=== PATIENT | male | born 1950 | race Caucasian/White ===

== ENCOUNTER 2018-01-22 15:48 | Inpatient (IN) | payer OTHER, MEDICAID ==
[2018-01-22 16:11] LABS: ADD MAN DIFF? NO
[2018-01-22 16:15] LABS: BASO # 0.1 x10^3/uL (0.0-0.2); BASO % 1 % (0-3); EOS # 0.1 x10^3/uL (0.0-0.7); EOS % 1 % (0-3); HEMATOCRIT 35.3 % (39.0-53.0); LYMPH # 0.8 x10^3/uL (1.0-4.8); LYMPH % 8 % (24-48); MEAN CORPUSCULAR HEMOGLOBIN 31 pg (25-35); MEAN CORPUSCULAR HGB CONC 34 g/dL (31-37); MEAN CORPUSCULAR VOLUME 92 fL (79-100); MONO # 0.9 x10^3/uL (0.0-1.1); MONO % 8 % (0-9); NEUT # 9.1 x10^3uL (1.8-7.7); NEUT % 83 % (31-73); PLATELET COUNT 527 x10^3/uL (140-400); RED BLOOD COUNT 3.85 x10^6/uL (4.30-5.70)
[2018-01-22] MEDS: IV NORMAL SALINE 1000ML BAG 1,000 ML IV ×2 (16:15→18:55)
[2018-01-22 16:26] LABS: ANION GAP 5 (6-14); BLOOD UREA NITROGEN 14 mg/dL (8-26); BUN/CREATININE RATIO 13 (6-20); CALCIUM 8.2 mg/dL (8.5-10.1); CARBON DIOXIDE 29 mmol/L (21-32); CHLORIDE 102 mmol/L (98-107); CREATININE 1.1 mg/dL (0.7-1.3); GFR 66.8; GLUCOSE 113 mg/dL (70-99); POTASSIUM 3.7 mmol/L (3.5-5.1); SODIUM 136 mmol/L (136-145)
[2018-01-22] MEDS: CLINDAMYCIN 900MG PREMIX 50 ML IV (16:30)
[2018-01-22] MEDS ORDERED: VANCOMYCIN 1.75 GM in IV NORMAL SALINE 500ML BAG 500 ML IV (16:30)
[2018-01-22] MEDS: PIPERACILLIN/TAZOBACTAM 4.5 GM in IV NORMAL SALINE 100ML 100 ML IV (16:30)
[2018-01-22 16:32] LABS: ALBUMIN 2.2 g/dL (3.4-5.0); ALBUMIN/GLOBULIN RATIO 0.5 (1.0-1.7); ALK PHOS 86 U/L (46-116); ALT (SGPT) 29 U/L (16-63); AST (SGOT) 34 U/L (15-37); TOTAL BILIRUBIN 0.5 mg/dL (0.2-1.0); TOTAL PROTEIN 6.8 g/dL (6.4-8.2)
[2018-01-22 16:35] LABS: LACTIC ACID 1.7 mmol/L (0.4-2.0)
[2018-01-22] MEDS ORDERED: IV NORMAL SALINE 1000ML BAG 1,000 ML IV (16:41)
[2018-01-22] MEDS ORDERED: ONDANSETRON PF 4 MG/2 ML VIAL. IV ×2 (16:45→17:15)
[2018-01-22] MEDS ORDERED: MORPHINE SULFATE 4 MG/ML DISP.SYRIN. IV (16:45)
[2018-01-22] MEDS ORDERED: CONTRAST GIVEN MC (17:00)
[2018-01-22] MEDS ORDERED: IPRATRPIUM/ALBUTEROL 0.5/2.5MG 3 ML NEBU. NEB (17:00)
[2018-01-22] MEDS ORDERED: ACETAMINOPHEN 500 MG TABLET PO (17:15)
[2018-01-22] MEDS ORDERED: diphenhydrAMINE HCL 25 MG CAPSULE PO (17:15)
[2018-01-22 17:18] LABS: INR 1.1 (0.8-1.1); PROTHROMBIN TIME PATIENT 13.8 SEC (11.7-14.0)
[2018-01-22] MEDS: IOHEXOL 300 MG/ML 100ML VIAL. IV (17:29)
[2018-01-22] MEDS ORDERED: ALBUTEROL SULFATE 2.5 MG/3 ML NEBU. NEB (17:30)
[2018-01-22 18:06] LABS: SEDIMENTATION RATE 70 (0-15)
[2018-01-22] MEDS: VANCOMYCIN 2 GM in IV 1/2 NORMAL SALINE 500 ML IV (18:55)
[2018-01-22] MEDS: BUDESONIDE 0.5 MG/2 ML NEBU. NEB (19:27)
[2018-01-22] MEDS: ALBUTEROL SULFATE 2.5 MG/3 ML NEBU. NEB (19:27)
[2018-01-22] MEDS: IPRATROPIUM BROMIDE 0.5 MG/2.5 ML NEBU. NEB (19:29)
[2018-01-22] MEDS: OLANZapine 5 MG TABLET PO (21:14)
[2018-01-23] MEDS: IV NORMAL SALINE 1000ML BAG 1,000 ML IV ×3 (03:15→20:54)
[2018-01-23] MEDS: LEVOTHYROXINE 100 MCG TABLET PO (06:03)
[2018-01-23 06:07] LABS: ADD MAN DIFF? NO
[2018-01-23] MEDS: BUDESONIDE 0.5 MG/2 ML NEBU. NEB ×2 (07:05→20:29)
[2018-01-23] MEDS: IPRATROPIUM BROMIDE 0.5 MG/2.5 ML NEBU. NEB ×3 (07:10→20:30)
[2018-01-23] MEDS: ALBUTEROL SULFATE 2.5 MG/3 ML NEBU. NEB ×3 (07:11→20:29)
[2018-01-23 08:06] LABS: BASO # 0.1 x10^3/uL (0.0-0.2); BASO % 1 % (0-3); EOS # 0.1 x10^3/uL (0.0-0.7); EOS % 2 % (0-3); HEMATOCRIT 30.1 % (39.0-53.0); HEMOGLOBIN 10.3 g/dL (13.0-17.5); LYMPH # 0.8 x10^3/uL (1.0-4.8); LYMPH % 9 % (24-48); MEAN CORPUSCULAR HEMOGLOBIN 32 pg (25-35); MEAN CORPUSCULAR HGB CONC 34 g/dL (31-37); MEAN CORPUSCULAR VOLUME 92 fL (79-100); MONO # 0.8 x10^3/uL (0.0-1.1); MONO % 10 % (0-9); NEUT # 6.9 x10^3uL (1.8-7.7); NEUT % 79 % (31-73); PLATELET COUNT 462 x10^3/uL (140-400); RED BLOOD COUNT 3.27 x10^6/uL (4.30-5.70); WHITE BLOOD COUNT 8.7 x10^3/uL (4.0-11.0)
[2018-01-23] MEDS ORDERED: LIDOCAINE 1% PF 30 ML VIAL. (08:23)
[2018-01-23] MEDS: LACTOBACILLUS RHAMNOSUS GG 1 CAPSULE. PO ×2 (11:46→20:51)
[2018-01-23] MEDS: PIPERACILLIN/TAZOBACTAM 3.375 GM in IV NORMAL SALINE 50ML 50 ML IV ×3 (11:46→23:29)
[2018-01-23] MEDS: VANCOMYCIN PER PHARMACY MC (12:07)
[2018-01-23] MEDS: VANCOMYCIN 1.25 GM in IV DEXTROSE 5 %-0.2 % NACL 250 ML IV (12:24)
[2018-01-23] MEDS: OLANZapine 5 MG TABLET PO (20:51)
[2018-01-23 21:48] LABS: BACTERIA,URINE 0 /HPF (0-FEW); BILIRUBIN,URINE NEGATIVE (NEG); CLARITY,URINE CLEAR; COLOR,URINE YELLOW; GLUCOSE,URINE NEGATIVE (NEG); NITRITE,URINE NEGATIVE (NEG); PH,URINE 6.5; PROTEIN,URINE NEGATIVE (NEG-TRACE); RBC,URINE RARE /HPF (0-2); SQUAMOUS EPITHELIAL CELL,UR FEW /LPF; WBC,URINE 0 /HPF (0-4)
[2018-01-24] MEDS: VANCOMYCIN 1.25 GM in IV DEXTROSE 5 %-0.2 % NACL 250 ML IV ×3 (00:11→23:15)
[2018-01-24] MEDS: LEVOTHYROXINE 100 MCG TABLET PO (05:58)
[2018-01-24] MEDS: PIPERACILLIN/TAZOBACTAM 3.375 GM in IV NORMAL SALINE 50ML 50 ML IV ×3 (06:01→18:15)
[2018-01-24] MEDS: LACTOBACILLUS RHAMNOSUS GG 1 CAPSULE. PO ×2 (09:06→21:49)
[2018-01-24 11:34] LABS: VANC TR 16.2 mcg/mL (10.0-20.0)
[2018-01-24] MEDS: VANCOMYCIN PER PHARMACY MC (12:59)
[2018-01-24] MEDS: IPRATRPIUM/ALBUTEROL 0.5/2.5MG 3 ML NEBU. NEB ×2 (15:23→21:00)
[2018-01-24] MEDS: IV NORMAL SALINE 1000ML BAG 1,000 ML IV (16:49)
[2018-01-24] MEDS: BUDESONIDE 0.5 MG/2 ML NEBU. NEB (20:00)
[2018-01-24] MEDS: OLANZapine 5 MG TABLET PO (21:49)
[2018-01-24 23:13] LABS: MRSA BY PCR Negative (Negative)
[2018-01-25] MEDS: PIPERACILLIN/TAZOBACTAM 3.375 GM in IV NORMAL SALINE 50ML 50 ML IV ×4 (02:34→17:58)
[2018-01-25] MEDS: IV NORMAL SALINE 1000ML BAG 1,000 ML IV ×4 (02:35→21:32)
[2018-01-25] MEDS: IPRATRPIUM/ALBUTEROL 0.5/2.5MG 3 ML NEBU. NEB ×3 (07:23→19:16)
[2018-01-25] MEDS: BUDESONIDE 0.5 MG/2 ML NEBU. NEB ×3 (07:23→19:16)
[2018-01-25] MEDS: LEVOTHYROXINE 100 MCG TABLET PO (09:17)
[2018-01-25] MEDS: LACTOBACILLUS RHAMNOSUS GG 1 CAPSULE. PO ×2 (09:17→21:31)
[2018-01-25] MEDS: VANCOMYCIN 1.25 GM in IV DEXTROSE 5 %-0.2 % NACL 250 ML IV ×2 (14:01→23:19)
[2018-01-25 14:16] LABS: SEDIMENTATION RATE 85 (0-15)
[2018-01-25] MEDS: HYDROcodone/APAP 5/325MG 1 TAB TABLET PO (16:11)
[2018-01-25] MEDS: OLANZapine 5 MG TABLET PO (21:31)
[2018-01-26] MEDS: PIPERACILLIN/TAZOBACTAM 3.375 GM in IV NORMAL SALINE 50ML 50 ML IV ×2 (01:57→06:07)
[2018-01-26 04:11] LABS: ADD MAN DIFF? NO
[2018-01-26 04:24] LABS: BASO # 0.1 x10^3/uL (0.0-0.2); BASO % 2 % (0-3); EOS # 0.2 x10^3/uL (0.0-0.7); EOS % 3 % (0-3); HEMATOCRIT 27.9 % (39.0-53.0); HEMOGLOBIN 9.7 g/dL (13.0-17.5); LYMPH # 0.9 x10^3/uL (1.0-4.8); LYMPH % 14 % (24-48); MEAN CORPUSCULAR HEMOGLOBIN 32 pg (25-35); MEAN CORPUSCULAR HGB CONC 35 g/dL (31-37); MEAN CORPUSCULAR VOLUME 91 fL (79-100); MONO # 0.7 x10^3/uL (0.0-1.1); MONO % 11 % (0-9); NEUT # 4.3 x10^3uL (1.8-7.7); NEUT % 71 % (31-73); PLATELET COUNT 335 x10^3/uL (140-400); RED BLOOD COUNT 3.07 x10^6/uL (4.30-5.70); RED CELL DISTRIBUTION WIDTH 13.8 % (11.5-14.5); WHITE BLOOD COUNT 6.1 x10^3/uL (4.0-11.0)
[2018-01-26 04:44] LABS: ALBUMIN 1.9 g/dL (3.4-5.0); ALBUMIN/GLOBULIN RATIO 0.5 (1.0-1.7); ALK PHOS 69 U/L (46-116); ALT (SGPT) 25 U/L (16-63); ANION GAP 8 (6-14); AST (SGOT) 22 U/L (15-37); BLOOD UREA NITROGEN 9 mg/dL (8-26); BUN/CREATININE RATIO 9 (6-20); CALCIUM 7.9 mg/dL (8.5-10.1); CARBON DIOXIDE 27 mmol/L (21-32); CHLORIDE 105 mmol/L (98-107); GFR 74.5; GLUCOSE 89 mg/dL (70-99); POTASSIUM 3.3 mmol/L (3.5-5.1); SODIUM 140 mmol/L (136-145); TOTAL BILIRUBIN 0.4 mg/dL (0.2-1.0)
[2018-01-26] MEDS: IPRATRPIUM/ALBUTEROL 0.5/2.5MG 3 ML NEBU. NEB ×2 (07:38→13:38)
[2018-01-26] MEDS: BUDESONIDE 0.5 MG/2 ML NEBU. NEB (07:38)
[2018-01-26] MEDS: LACTOBACILLUS RHAMNOSUS GG 1 CAPSULE. PO (08:08)
[2018-01-26] MEDS: LEVOTHYROXINE 100 MCG TABLET PO (08:08)
[2018-01-26] MEDS: IV NORMAL SALINE 1000ML BAG 1,000 ML IV (11:22)
[2018-01-26] MEDS: AMOXICILLIN/K CLAV 875/125MG TABLET. PO (11:38)
[2018-01-26] MEDS: HYDROcodone/APAP 5/325MG 1 TAB TABLET PO (11:39)
[2018-01-26] MEDS: POTASSIUM CHLORIDE 20 MEQ TABLET.ER. PO (11:39)
== END 2018-01-26 13:55 | disposition home or self-care (01) | DRG 871 ==
LOC: ER 15:48 → 4 NORTH 16:17
PROC: 0V95XZZ Drainage of Scrotum, External Approach (ICD-10-PCS; principal; 2018-01-23)
DX: A41.9 Sepsis, unspecified organism (principal); E43 Unspecified severe protein-calorie malnutrition; L02.215 Cutaneous abscess of perineum; L03.315 Cellulitis of perineum; F20.9 Schizophrenia, unspecified; J44.9 Chronic obstructive pulmonary disease, unspecified; E03.9 Hypothyroidism, unspecified; E87.6 Hypokalemia; K40.90 Unilateral inguinal hernia, without obstruction or gangrene, not specified as recurrent; Z88.8 Allergy status to other drugs, medicaments and biological substances; N49.2 Inflammatory disorders of scrotum; N43.3 Hydrocele, unspecified; Z68.27 Body mass index [BMI] 27.0-27.9, adult
CPT/HCPCS: 36415; 74177; 76870; 80053; 80202; 81001; 83605; 85025; 85610; 85651; 87040; 87071; 87075; 87205; 87641; 94640; 94760; 96365; 96367; 96368; 99285; 99285-25; J2543; J3370; J3490; J7030; J7613; J7620; J7626; J7644; Q9967

== ENCOUNTER 2018-04-11 12:01 | Day surgery (SDC) | payer OTHER ==
[~2018-04-11 12:01] MED LIST: LIDOCAINE 1% PF 2 ML VIAL. ID; MORPHINE SULFATE 2 MG/ML DISP.SYRIN. IV; ONDANSETRON PF 4 MG/2 ML VIAL. IV; PROCHLORPERAZINE 10 MG/2 ML VIAL. IV; fentaNYL PF VIAL 100 MCG/2 ML VIAL IV
[2018-04-11] MEDS: IV RINGERS,LACTATED 1000ML 1,000 ML IV ×2 (12:17→15:59)
[2018-04-11] MEDS ORDERED: KETOROLAC 30 MG/ML INJ FOR OR. INJ (12:42)
[2018-04-11] MEDS ORDERED: MIDAZOLAM HCL/PF 2 MG/2 ML VIAL. (12:42)
[2018-04-11] MEDS ORDERED: PROPOFOL 20 ML IV (12:42)
[2018-04-11] MEDS ORDERED: FAMOTIDINE 20 MG/2 ML VIAL (12:42)
[2018-04-11] MEDS ORDERED: ROCURONIUM 50 MG/5 ML VIAL. (12:42)
[2018-04-11] MEDS ORDERED: LIDOCAINE 2% PF Vial for OR 5 ML VIAL. (12:42)
[2018-04-11] MEDS ORDERED: fentaNYL PF VIAL 100 MCG/2 ML VIAL (12:42)
[2018-04-11] MEDS ORDERED: ONDANSETRON PF 4 MG/2 ML VIAL. (12:42)
[2018-04-11] MEDS ORDERED: ceFAZolin SODIUM 1 GM VIAL (14:33)
[2018-04-11] MEDS: BUPIVACAINE-EPI 0.25%-1:200000 50 ML VIAL. (14:40)
[2018-04-11] MEDS ORDERED: GLYCOPYRROLATE 1 MG/5 ML VIAL. (14:43)
[2018-04-11] MEDS ORDERED: NEOSTIGMINE METHYLSULFATE 5 MG/5 ML SYRINGE. (14:49)
[2018-04-11] MEDS ORDERED: SEVOFLURANE > 120 MINUTES. IH (15:16)
[2018-04-11] MEDS ORDERED: SEVOFLURANE 61 TO 120 MINUTES. IH (15:16)
[2018-04-11] MEDS: fentaNYL PF VIAL 100 MCG/2 ML VIAL IV ×2 (15:58→16:30)
[2018-04-11] MEDS: HYDROcodone/APAP 5/325MG 1 TAB TABLET PO (16:29)
== END 2018-04-11 17:37 | disposition home or self-care (01) ==
LOC: SURG 12:01
DX: K40.30 Unilateral inguinal hernia, with obstruction, without gangrene, not specified as recurrent (principal); J44.9 Chronic obstructive pulmonary disease, unspecified; E03.9 Hypothyroidism, unspecified; F20.0 Paranoid schizophrenia; F17.200 Nicotine dependence, unspecified, uncomplicated; Z88.8 Allergy status to other drugs, medicaments and biological substances; Z79.899 Other long term (current) drug therapy; Z98.890 Other specified postprocedural states
CPT/HCPCS: 49650; A7015; C1781; J0690; J1885; J2001; J2250; J2405; J2704; J2710; J3010; J3490; J7120; S0028